=== PATIENT | female | born 1985 | race Caucasian/White ===

== ENCOUNTER 2021-01-09 18:00 | Inpatient (IN) | payer BC, OTHER ==
[2021-01-09 18:30] VITALS: BMI 34.1
[2021-01-09] MEDS ORDERED: DEXTROSE 5%-LACTATED RINGERS 1,000 ML IV SCH (19:15)
[2021-01-09] MEDS ORDERED: BISACODYL 10 MG SUPP.RECT RC PRN (19:16)
[2021-01-09] MEDS ORDERED: METHYLERGONOVINE MALEATE 0.2 MG/1 ML AMP IM PRN (19:16)
[2021-01-09] MEDS ORDERED: ACETAMINOPHEN 325 MG TABLET (FP) PO PRN (19:16)
[2021-01-09] MEDS ORDERED: WITCH HAZEL 50% (TUCKS) 40 PAD/JAR PAD TP PRN (19:16)
[2021-01-09] MEDS ORDERED: BENZOCAINE 28 GM HEMORRHOIDAL OINTMENT TP PRN (19:16)
[2021-01-09] MEDS ORDERED: oxyCODONE HCL 5 MG TABLET PO PRN (19:16)
[2021-01-09] MEDS ORDERED: OXYTOCIN 20 UNITS in 0.9% NS 20 UNIT/1,000 ML INFUS.BAG IV SCH (19:30)
[2021-01-09] MEDS ORDERED: OXYTOCIN 20 UNITS in 0.9% NS 20 UNIT/1,000 ML INFUS.BAG IV ONE (19:56)
[2021-01-09 20:21] LABS: HEMOGLOBIN 11.6 GM/dL (10.7-15.3); MCH 30.6 pg (25.7-33.7); MEAN CELL VOLUME 89.8 fl (80-96); MEAN PLT VOLUME 8.8 fl (7.5-11.1); PLATELET COUNT 228 10^3/uL (134-434); RBC 3.79 M/mm3 (3.60-5.2); RDW 13.9 % (11.6-15.6); WHITE BLOOD COUNT 10.2 K/mm3 (4.0-10.0)
[2021-01-09 20:28] LABS: INR 0.9 (0.83-1.09); PROTHROMBIN TIME (PATIENT) 11.1 SEC (9.7-13.0)
[2021-01-09 20:31] LABS: ACTIVATED PTT 23.3 SECONDS (25.2-36.5)
[2021-01-09 20:37] LABS: CALCIUM 8.3 mg/dL (8.5-10.1)
[2021-01-09 20:38] LABS: BLOOD UREA NITROGEN 8.6 mg/dL (7-18)
[2021-01-09 20:41] LABS: CREATININE 0.7 mg/dL (0.55-1.3)
[2021-01-09 21:31] LABS: HIV INTERPRETATION NEGATIVE (NEGATIVE)
[2021-01-09 21:38] LABS: ANISOCYTOSIS 0; MACROCYTOSIS 0; PLATELET ESTIMATE NORMAL
[2021-01-09] MEDS: IBUPROFEN 600 MG TABLET (FP) PO PRN (22:35)
[2021-01-10] MEDS: PRENATAL VITAMINS W/ FOLIC ACID TABLET (FP) PO SCH (09:20)
[2021-01-10] MEDS: BENZOCAINE 20% 57 GM BOTTLE TP PRN (09:21)
[2021-01-10] MEDS: IBUPROFEN 600 MG TABLET (FP) PO PRN (09:26)
[2021-01-10 10:28] LABS: BASO % 0.1 % (0-2.0); EOS % 0.1 % (0-4.5); HEMATOCRIT 33.5 % (32.4-45.2); HEMOGLOBIN 11.5 GM/dL (10.7-15.3); LYMPH % 12.9 % (8-40); MCH 30.6 pg (25.7-33.7); MCHC 34.2 g/dl (32.0-36.0); MEAN CELL VOLUME 89.3 fl (80-96); MEAN PLT VOLUME 8.9 fl (7.5-11.1); MONO % 5.2 % (3.8-10.2); NEUT % 81.7 % (42.8-82.8); PLATELET COUNT 228 10^3/uL (134-434); RBC 3.76 M/mm3 (3.60-5.2); RDW 13.7 % (11.6-15.6); WHITE BLOOD COUNT 11.1 K/mm3 (4.0-10.0)
[2021-01-10] MEDS ORDERED: SENNOSIDES/DOCUSATE COMBO (SENNA PLUS) TABLET (UD) PO PRN (22:00)
[2021-01-11] MEDS: IBUPROFEN 600 MG TABLET (FP) PO PRN (08:20)
[2021-01-11] MEDS: BENZOCAINE 20% 57 GM BOTTLE TP PRN (08:24)
[2021-01-11] MEDS: PRENATAL VITAMINS W/ FOLIC ACID TABLET (FP) PO SCH (10:15)
[2021-01-11 10:48] VITALS: BP 107/60; PULSE 83; TEMP 97.8
== END 2021-01-11 12:35 | disposition home or self-care (01) | DRG 807 ==
LOC: JLDR 18:00 → J3W 21:33
PROVIDERS: ADMIT Obstetrics & Gynecology; ATTEND Obstetrics & Gynecology
PROC: 10E0XZZ Delivery of Products of Conception, External Approach (ICD-10-PCS; principal; 2021-01-09)
PROC: 0W8NXZZ Division of Female Perineum, External Approach (ICD-10-PCS; 2021-01-09)
DX: O42.02 Full-term premature rupture of membranes, onset of labor within 24 hours of rupture (principal); Z37.0 Single live birth; O32.6XX0 Maternal care for compound presentation, not applicable or unspecified; Z3A.38 38 weeks gestation of pregnancy
CPT/HCPCS: 36415; 59409; 80048; 83021; 85025; 85461; 85610; 85730; 86780; 86850; 86870; 86900; 86901; 86902; 86999; 87389; C9803; U0003; U0005